=== PATIENT | male | born 1995 | race Caucasian/White ===

== ENCOUNTER 2019-01-26 05:45 | Day surgery (SDC) | payer OTHER ==
[2019-01-26] MEDS: LACTATED RINGER'S 1,000 ML IV (07:11)
[2019-01-26] MEDS ORDERED: HYDROmorphONE 1 MG/5 ML IV SYRINGE IV ×3 (07:30)
[2019-01-26] MEDS ORDERED: DIPHENHYDRAMINE 50 MG INJ IV (07:30)
[2019-01-26] MEDS ORDERED: OXYCODONE/ACETAMINOPHEN (5/325) TAB PO ×2 (07:30)
[2019-01-26] MEDS ORDERED: ONDANSETRON 4 MG INJ IV (07:30)
[2019-01-26] MEDS ORDERED: MEPERIDINE 25 MG INJ IV (07:30)
[2019-01-26] MEDS ORDERED: KETOROLAC 30 MG INJ IV (07:30)
[2019-01-26] MEDS ORDERED: FENTAnyl 50 MCG/ML VIAL IV ×3 (07:30)
[2019-01-26] MEDS ORDERED: PROPOFOL 20 ML (07:36)
[2019-01-26] MEDS ORDERED: METOCLOPRAMIDE 10 MG INJ (07:36)
[2019-01-26] MEDS ORDERED: ONDANSETRON 4 MG INJ (07:36)
[2019-01-26] MEDS ORDERED: KETOROLAC 30 MG INJ (07:36)
[2019-01-26] MEDS ORDERED: ROPIVACAINE 0.2% 20 ML VIAL (07:36)
[2019-01-26] MEDS ORDERED: CEFAZOLIN 1 GM INJ (07:36)
[2019-01-26] MEDS ORDERED: MIDAZOLAM 1 MG/ML 2 ML INJ (07:36)
[2019-01-26] MEDS ORDERED: FENTAnyl 50 MCG/ML VIAL (07:40)
[2019-01-26] MEDS ORDERED: HYDROmorphONE 2 MG/ML SYG (08:01)
[2019-01-26] MEDS: POLYMYXIN/BACITRACIN 1L IRRIG IRR (09:00)
[2019-01-26] MEDS: EPINEPHrine 1 MG/ML 30 ML INJ ×2 (09:05→09:06)
[2019-01-26] MEDS: morphine SULFATE/PF (10 MG/10 ML) INJ (09:06)
[2019-01-26] MEDS ORDERED: HYDROCODONE/APAP (5/325) TAB PO (12:00)
[2019-01-26] MEDS: LABETALOL HCL 20MG INJ IV (12:52)
== END 2019-01-26 15:25 | disposition home or self-care (01) ==
LOC: SDS 05:45
DX: S83.511D Sprain of anterior cruciate ligament of right knee, subsequent encounter (principal); S83.231D Complex tear of medial meniscus, current injury, right knee, subsequent encounter; S83.211D Bucket-handle tear of medial meniscus, current injury, right knee, subsequent encounter; X58.XXXD Exposure to other specified factors, subsequent encounter
CPT/HCPCS: 29881